=== PATIENT | female | born 1935 | race Asian ===

== ENCOUNTER 2019-08-31 16:19 | Inpatient (IN) | payer OTHER ==
[~2019-08-31] VITALS: Ht 137.2 cm; Wt 60.3 kg
[2019-08-31 16:34] VITALS: BP 138/82
--- NOTE | 2019-08-31 17:22 | NUR ---
84 YR F JONATHAN HO C/O AB PAIN AND WEAKNESS X YESTERDAY. DENIES NVD PMH- HTN, HIGH CHOLSTEROL, ARTHRITIS
[2019-08-31] MEDS ORDERED: ACETAMINOPHEN EXTRA STRENGTH 500 MG TAB PO ONE (17:30)
[2019-08-31] MEDS ORDERED: NACL 0.9% 500 ML IV ONE (17:30)
[2019-08-31] MEDS ORDERED: MORPHINE SULFATE 4 MG/ML SYR IVP ONE (17:30)
[2019-08-31 17:50] LABS: BASOPHILS % (AUTO) 0.2 % (0.0-2.0); HEMATOCRIT 38.8 % (36-48); HEMOGLOBIN 12.8 g/dL (12.0-16.0); LYMPHOCYTES # (AUTO) 1.1 K/uL (2.5-16.5); LYMPHOCYTES % (AUTO) 6.2 % (20.5-51.1); MEAN CORPUSCULAR HEMOGLOBIN 31 pg (27-31); MEAN CORPUSCULAR HGB CONC 33 g/dL (33-37); MEAN CORPUSCULAR VOLUME 92.8 fL (80-94); MONOCYTES # (AUTO) 1.6 K/uL (0.8-1.0); MONOCYTES % (AUTO) 8.6 % (1.7-9.3); NEUTROPHILS # (AUTO) 15.5 K/uL (1.8-7.7); PLATELET COUNT (AUTO) 231 K/uL (140-450); RED BLOOD CELL COUNT(AUTO) 4.18 MIL/uL (4.20-5.40); RED CELL DISTRIBUTION WIDTH 14.2 % (11.6-13.7); WHITE BLOOD COUNT (AUTO) 18.2 K/uL (4.8-10.8)
[2019-08-31 18:01] LABS: APPEARANCE,URINE SL CLOUDY (CLEAR); BILIRUBIN,URINE NEGATIVE (NEGATIVE); BLOOD, URINE 3+ (NEGATIVE); COLOR,URINE YELLOW (YELLOW); LEUKOCYTE ESTERASE ,URINE NEGATIVE (NEGATIVE); NITRITE, URINE NEGATIVE (NEGATIVE); PH,URINE 6.5 (5.0-9.0); UGLUCOSE NEGATIVE (NEGATIVE)
[2019-08-31 18:13] LABS: PROTHROMBIN TIME 10.3 secs (10.8-13.4)
--- NOTE | 2019-08-31 18:14 | NUR ---
PT TAKEN TO CT VIA WHEEL CHAIR
[2019-08-31 18:15] LABS: ALBUMIN 3.5 g/dL (3.4-5.0); BILIRUBIN,DIRECT 0.4 mg/dL (0.0-0.3); TOTAL BILIRUBIN 1.6 mg/dL (0.0-1.0)
[2019-08-31 18:28] LABS: ALBUMIN 3.5 g/dL (3.4-5.0); ANION GAP 14.8 (8-16); ASPARTATE AMINOTRANSFERASE 21 U/L (15-37); CHLORIDE 91 mmol/L (98-107); CREATININE 0.8 mg/dL (0.6-1.3); GLUCOSE 132 mg/dL (74-106); SODIUM SERUM 129 mmol/L (136-145); TOTAL BILIRUBIN 1.6 mg/dL (0.0-1.0); UREA NITROGEN, BLOOD 18 mg/dL (7-18)
[2019-08-31 18:34] LABS: POTASSIUM 2.8 mmol/L (3.5-5.1)
[2019-08-31] MEDS ORDERED: POTASSIUM CHLORIDE 10 MEQ TABER PO ONE (18:45)
[2019-08-31 18:55] LABS: RBC,URINE 11-20 (MOD) /HPF (0-5)
[2019-08-31 18:56] LABS: WBC,URINE 0-5 /HPF (0-5)
[2019-08-31] MEDS ORDERED: PIPERACILLIN/TAZOBACTAM 3.375 GM in DEXTROSE 5% 50 ML IV ONE (19:00)
[2019-08-31] MEDS ORDERED: PIPERACILLIN/TAZOBACTAM 3.375 GM VIAL IV ONE (19:10)
--- NOTE | 2019-08-31 19:12 | NUR ---
REPORT RECEIVED FROM WILDA KEATING. TRANSFER OF CARE AT THIS TIME.
[2019-08-31] MEDS ORDERED: ONDANSETRON 4 MG/2 ML VIAL IVP PRN (19:15)
[2019-08-31] MEDS ORDERED: ALBUTEROL 0.083% 2.5 MG/3 ML NEBU INH PRN (19:15)
[2019-08-31] MEDS ORDERED: LORazepam 2 MG/ML VIAL IVP PRN (19:15)
[2019-08-31] MEDS ORDERED: MORPHINE SULFATE 4 MG/ML SYR IVP PRN (19:15)
[2019-08-31] MEDS ORDERED: MORPHINE SULFATE 2 MG/ML SYR IVP PRN (19:15)
--- NOTE | 2019-08-31 19:15 | NUR ---
PT SITTING UP IN [facility]I [facility]RILL[facility]S IN BED WITH VSS. AWAKE, A/O X 4. DAUGHTER AT BEDSIDE FOR TRANSLATION FOR MAGALY.
[2019-08-31] MEDS ORDERED: SIMV10TA1 PO (19:35)
[2019-08-31] MEDS ORDERED: ATEN100T6 PO (19:35)
[2019-08-31 19:45] VITALS: BP 136/72
--- NOTE | 2019-08-31 19:45 | NUR ---
ADMITTED A 84F FROM ER. CAME BY LIN ACCOMPANIED BY DAUGHTER. AWAKE,ALERT AND ORIENTED X4. ON TELE MONITOR. CAME DUE TO ABDOMINAL PAIN , NAUSEA, WEAKNESS AND FEVER. AMBULATORY WITH CANE. BY AT THIS TIME PT HAS WEAKNESS. DENIES ANY PAIN AT THIS TIME. AFEBRILE. INITIAL SKIN ASSESSMENT DONE. INTACT. WITH IVF INFUSING WELL ON THE RT HAND G#22. CLEAR AND PATENT. PLAN OF CARE DISCUSSED WITH PT/DAUGHTER . VERBALIZED UNDERSTANDING. ORIENTED TO HOSPITAL ROUTINES. CALL LIGHT WITHIN REACH. BED ON LOW POSITION. SIDE RAILS UP X2, BED ALARM ON. WILL FOLLOW UP ADMIT ORDERS AND WILL CONTINUE TO MONITOR.
--- NOTE | 2019-08-31 19:45 | NUR ---
Patient will be admitted to [facility]. Admited to Tele. Will go to room 128. Belongings list completed. Report to WILDA Vargas.
[2019-08-31] MEDS ORDERED: LACTATED RINGERS 1,000 ML IV SCH (20:00)
[2019-08-31] MEDS ORDERED: PIPERACILLIN/TAZOBACTAM 3.375 GM in DEXTROSE 5% 50 ML IV SCH (21:00)
[2019-08-31] MEDS: LACTATED RINGERS 1,000 ML IV SCH (21:10)
--- NOTE | 2019-08-31 21:10 | NUR ---
IVF LR @100 ML /HR STARTED ON THE RT HAND G#22 PER ORDER. INFUSING WELL.
--- NOTE | 2019-08-31 22:00 | NUR ---
PT KEPT NPO ORDERED FOR POSSIBLE SURGERY.
[2019-09-01 00:12] VITALS: BP 128/64
--- NOTE | 2019-09-01 00:37 | NUR ---
DR. Amarjit TOTH WITH ORDER TO OBTAIN CONSENT FOR LAPAROSCOPIC APPENDECTOMY POSSIBLE OPEN. PT AND DAUGHTER MADE AWARE ABOUT THE SURGERY AND VERBALIZED UNDERSTANDING. CONSENT SIGNED BY PT.
--- NOTE | 2019-09-01 02:00 | NUR ---
MADE ROUNDS. PT SLEEPING. NO S/S OF ANY DISCOMFORT NOR PAIN NOTED.
[2019-09-01 04:00] VITALS: BP 117/53
[2019-09-01 04:37] LABS: ALBUMIN 2.9 g/dL (3.4-5.0); ANION GAP 11.5 (8-16); ASPARTATE AMINOTRANSFERASE 18 U/L (15-37); CARBON DIOXIDE 27.9 mmol/L (21-32); CHLORIDE 97 mmol/L (98-107); CREATININE 0.8 mg/dL (0.6-1.3); GLUCOSE 118 mg/dL (74-106); POTASSIUM 3.4 mmol/L (3.5-5.1); SODIUM SERUM 133 mmol/L (136-145); TOTAL BILIRUBIN 1.5 mg/dL (0.0-1.0); UREA NITROGEN, BLOOD 19 mg/dL (7-18)
[2019-09-01] MEDS ORDERED: PIPERACILLIN/TAZOBACTAM 2.25 GM VIAL IV ONE (05:08)
--- NOTE | 2019-09-01 05:25 | NUR ---
K+LEVEL 3.4 ,DR. WILSON MADE AWARE. WITH ORDER.
[2019-09-01] MEDS: PIPERACILLIN/TAZOBACTAM 2.25 GM in DEXTROSE 5% 50 ML IV SCH ×3 (05:26→18:02)
[2019-09-01 05:40] LABS: BASOPHILS % (AUTO) 0.3 % (0.0-2.0); EOSINOPHILS # (AUTO) 0.1 K/uL (0-0.4); EOSINOPHILS % (AUTO) 0.5 % (0.0-4.0); HEMATOCRIT 34.1 % (36-48); HEMOGLOBIN 11.1 g/dL (12.0-16.0); LYMPHOCYTES # (AUTO) 1.3 K/uL (2.5-16.5); LYMPHOCYTES % (AUTO) 8.1 % (20.5-51.1); MEAN CORPUSCULAR HEMOGLOBIN 31 pg (27-31); MEAN CORPUSCULAR HGB CONC 33 g/dL (33-37); MEAN CORPUSCULAR VOLUME 93.9 fL (80-94); MONOCYTES # (AUTO) 1.2 K/uL (0.8-1.0); MONOCYTES % (AUTO) 7.8 % (1.7-9.3); NEUTROPHILS # (AUTO) 12.9 K/uL (1.8-7.7); NEUTROPHILS % (AUTO) 83.3 % (42.2-75.2); PLATELET COUNT (AUTO) 230 K/uL (140-450); RED BLOOD CELL COUNT(AUTO) 3.63 MIL/uL (4.20-5.40); WHITE BLOOD COUNT (AUTO) 15.5 K/uL (4.8-10.8)
[2019-09-01] MEDS ORDERED: KCL 20 MEQ/WATER INJ PREMIX 100 ML IV SCH (06:00)
[2019-09-01] MEDS: LACTATED RINGERS 1,000 ML IV SCH ×2 (06:45→16:56)
[2019-09-01] MEDS: BUPIVACAINE-MPF 0.25% 30 ML VIAL INJ ONE ×2 (07:07→09:43)
[2019-09-01] MEDS: LIDOCAINE 1% 500 MG/50 ML VIAL ONE ×2 (07:07→15:11)
[2019-09-01] MEDS ORDERED: DEXAMETHASONE 4 MG/ML VIAL ONE (07:30)
[2019-09-01] MEDS ORDERED: ONDANSETRON 4 MG/2 ML VIAL ONE (07:30)
[2019-09-01] MEDS ORDERED: fentaNYL 0.05 MG/ML VIAL ONE (07:30)
[2019-09-01] MEDS ORDERED: KETOROLAC 30 MG/ML VIAL ONE (07:30)
[2019-09-01] MEDS ORDERED: PROPOFOL 200 MG/20 ML VIAL IV ONE (07:30)
[2019-09-01] MEDS ORDERED: SEVOFLURANE 250 ML BTL INH ONE (07:30)
[2019-09-01] MEDS ORDERED: ROCURONIUM 50 MG/5 ML VIAL IV ONE (07:30)
[2019-09-01] MEDS ORDERED: SUCCINYLCHOLINE CHLORIDE 200 MG/10 ML VIAL IVP ONE (07:30)
[2019-09-01 08:00] VITALS: BP 143/71
[2019-09-01] MEDS: ENOXAPARIN 40 MG/0.4 ML SYR SUBQ SCH (09:00)
[2019-09-01 12:00] VITALS: BP 121/62
[2019-09-01] MEDS: HYDROcodone/APAP 5/325 MG 1 TAB TAB PO PRN ×2 (12:55→21:31)
--- NOTE | 2019-09-01 12:55 | NUR ---
GAVE PT NORCO FOR PAIN OF 3/10, PT IS S/P LAPAROSCOPIC ABDOMINAL SURGERY, PT KEEPS RUBBING HER SURGICAL SITE AND STATES IT ACHES, EDUCATION GIVEN, PT VERBALIZE UNDERSTANDING AND TOLERATED MEDICATION WELL. CALL LIGHT WITHIN REACH.
--- NOTE | 2019-09-01 15:29 | NUR ---
PATIENT HAS BEEN SCREENED AND CATEGORIZED LOW NUTRITION RISK. PATIENT WILL BE SEEN WITHIN 7 DAYS OF ADMISSION. 09/07/[address]
[2019-09-01 16:00] VITALS: BP 129/70
--- NOTE | 2019-09-01 16:57 | NUR ---
GAVE PT MORPHINE FOR SEVERE ABDOMINAL PAIN OF 5/10, PT KEEPS RUBBING STOMACH AND STATES SHE IS NOT COMFORTABLE, EDUCATION GIVEN, PT VERBALIZED UNDERSTANDING, PT TOLERATED WELL.
--- NOTE | 2019-09-01 19:00 | NUR ---
GAVE REPORT TO NIGHT NURSE FOR CONTINUITY OF CARE, PT IS STABLE, CALL LIGHT WITH REACH.
--- NOTE | 2019-09-01 19:05 | NUR ---
RECEIVED PT IN STABLE CONDITION FROM AM NURSE. AWAKE,ALERT AND ORIENTED 4. TELEMETRY PT. WITH NO C/O POST OP PAIN AT THIS TIME. ABDOMEN WITH X4 INCISIONS, WITH GLUE DRESSING. NO BLEEDING NOTED. WITH IVF INFUSING WELL ON THE RT HAND G#22. CLEAR AND PATENT. PLAN OF CARE DISCUSSED AND VERBALIZED UNDERSTANDING. SIDE RAILS UP X2. BED ON LOW POSITION. FREQ ROUNDS NEEDED. CALL LIGHT PLACED WITHIN REACH. WILL CONTINUE TO MONITOR.
[2019-09-01 20:00] VITALS: BP 112/61
--- NOTE | 2019-09-01 20:20 | NUR ---
INCENTIVE SPIROMETER EDUCATION PROVIDED. PATIENT UNABLE TO COMPREHEND INSTRUCTIONS. DAUGHTER AT BEDSIDE ATTEMPTED TO REINFORCE EDUCATION IN PATIENT PRIMARY LANGUAGE. PATIENT PERFORMED RETURN DEMONSTRATION WITH VERY POOR EFFORT/PT IS NOT COACHABLE. NO ACUTE RESPIRATORY DISTRESS NOTED AT THIS TIME. WILL CONTINUE TO MONITOR AND ENCOURAGE EQUIPMENT USAGE.
--- NOTE | 2019-09-01 21:30 | NUR ---
PT GOT UP TO BATHROOM WITH STANDBY ASSISTANCE. DAUGHTER AT BEDSIDE. VOIDED. THEN BACK TO BED. SCD MACHINE APPLIED TO BOTH LOWER LEG.
--- NOTE | 2019-09-01 21:50 | NUR ---
PT STILL AWAKE. WITH SLIGHT WHEEZING AFTER GETTING UP TO THE BATHROOM. ENCOURAGED TO USE INCENTIVE SPIROMETER . ABLE TO DO IT.
--- NOTE | 2019-09-01 23:00 | NUR ---
MADE ROUNDS. PT ASLEEP. NO S/S OF ANY DISCOMFORT NOTED.
[2019-09-02 00:15] VITALS: BP 111/53
[2019-09-02] MEDS: PIPERACILLIN/TAZOBACTAM 2.25 GM in DEXTROSE 5% 50 ML IV SCH ×3 (00:25→12:08)
[2019-09-02 00:30] VITALS: BP 111/53
--- NOTE | 2019-09-02 01:00 | NUR ---
SLEEPING AT THIS TIME. NO S/S OF ANY PAIN NOR DISCOMFORT NOTED.
[2019-09-02] MEDS: LACTATED RINGERS 1,000 ML IV SCH ×2 (02:45→05:06)
--- NOTE | 2019-09-02 03:00 | NUR ---
MADE ROUNDS. PT AWAKE. NO C/O ANY PAIN AT THIS TIME.
[2019-09-02 04:00] VITALS: BP 110/50
--- NOTE | 2019-09-02 05:00 | NUR ---
PT AWAKE. GOT UP TP BATHROOOM. VOIDED. NO PAIN NOTED.
--- NOTE | 2019-09-02 07:25 | NUR ---
ENDORSED PT IN STABLE CONDITION TO AM NURSE.
--- NOTE | 2019-09-02 07:26 | NUR ---
RECEIVED REPORT FROM NIGHT NURSE, PT IS AA0X4, PT IS STABLE, PT HAS RH 22G RUNNING LR AT 100ML/H, INTRODUCE SELF, UPDATED WHITE BOARD, SAFETY MEASURES IN PLACE, FAMILY AT BEDSIDE, CALL LIGHT WITHIN REACH, WILL CONTINUE TO MONITOR.
[2019-09-02 08:00] VITALS: BP 102/64
[2019-09-02] MEDS: ENOXAPARIN 40 MG/0.4 ML SYR SUBQ SCH (08:45)
--- NOTE | 2019-09-02 09:30 | NUR ---
GAVE PT ORDERED MEDICATION, PT EDUCATION ABOUT SIDE EFFECT GIVEN, PT VERBALIZED UNDERSTANDING, PT IS STABLE, DAUGHTER AT BEDSIDE, CALL LIGHT WITHIN REACH.
--- NOTE | 2019-09-02 10:39 | NUR ---
ELIZABETH assessment/discharge plan High Risk DC Screen Yes Name: Whitney Chase Home Relationship: daughter Pre-Admission Living Arrangements: Lives with Other Other: Whitney Chase Prior ADL Independent Current Home Health Name/Tel: N/A Current DME/02 Name/Tel: cane, no home O2 Current Hospice Name/Tel: N/A Current Dialysis Name/Tel: N/A Healthcare Decision Maker: Patient Advance Directive No Information Taught: Advance Directive Community Resources Person Taught: Children Patient Teaching Tools: Community Resources Computer Generated Print Verbal Factors Affecting Learning: None Participation Level: Active Evaluation: Gestures Understanding Verbalizes Understanding Educator: ELIZABETH Chacon Discipline: Case Mgt/Social Svcs Tentative Discharge Plan Summary: Patient is an 84 year old female admitted for acute appendicitis. I met with patient and patient's daughter Whitney Chase at bedside. Patient lives at home with her daughter Whitney Chase and plans to return home upon discharge. Patient's pcp is Jose Juan Pat and Whitney does not have any difficulty filling patient's prescriptions. Patient does not have hx of mental health or alcohol/substance abuse. I provided them with education on [employer] www.[employer].org for community resources. Subassembly Assembler and/or Hydration Plant Operator will follow up as needed. Signature: ELIZABETH Chacon Date: Sep 02, 2019
[2019-09-02 12:00] VITALS: BP 144/63
[2019-09-02] MEDS: HYDROcodone/APAP 5/325 MG 1 TAB TAB PO PRN (12:05)
--- NOTE | 2019-09-02 12:05 | NUR ---
ADMINISTER NORCO FOR PAIN OF 3/10, PT STATES SHE IS NOT COMFORTABLE AND KEEPS RUBBING SURGICAL SITE, PT EDUCATION GIVEN, PT TOLERATED WELL, PT IS STABLE, WILL CONTINUE TO MONITOR.
[2019-09-02] MEDS ORDERED: METR250T2 PO (14:34)
[2019-09-02] MEDS ORDERED: CIPR500T4 PO (14:34)
[2019-09-02] MEDS ORDERED: HYDR-5122 PO (14:39)
[2019-09-02] MEDS ORDERED: SENN-197 PO (14:39)
[2019-09-02 15:46] LABS: BASOPHILS % (AUTO) 0.1 % (0.0-2.0); EOSINOPHILS % (AUTO) 0.1 % (0.0-4.0); HEMATOCRIT 29.5 % (36-48); HEMOGLOBIN 9.7 g/dL (12.0-16.0); LYMPHOCYTES # (AUTO) 1.2 K/uL (2.5-16.5); LYMPHOCYTES % (AUTO) 9.2 % (20.5-51.1); MEAN CORPUSCULAR HEMOGLOBIN 31 pg (27-31); MEAN CORPUSCULAR HGB CONC 33 g/dL (33-37); MEAN CORPUSCULAR VOLUME 93.9 fL (80-94); MONOCYTES # (AUTO) 1.1 K/uL (0.8-1.0); MONOCYTES % (AUTO) 8.5 % (1.7-9.3); NEUTROPHILS # (AUTO) 11.1 K/uL (1.8-7.7); NEUTROPHILS % (AUTO) 82.1 % (42.2-75.2); PLATELET COUNT (AUTO) 224 K/uL (140-450); RED BLOOD CELL COUNT(AUTO) 3.14 MIL/uL (4.20-5.40); RED CELL DISTRIBUTION WIDTH 14.2 % (11.6-13.7); WHITE BLOOD COUNT (AUTO) 13.5 K/uL (4.8-10.8)
--- NOTE | 2019-09-02 15:53 | NUR ---
PT SITTING IN CHAIR BY THE BED, PT IS STABLE, EAGER TO GO HOME, NO SIGNS OF DISTRESS NOTED, DAUGHTER AT BEDSIDE,
[2019-09-02 16:04] LABS: ALBUMIN 2.8 g/dL (3.4-5.0); ANION GAP 12.1 (8-16); ASPARTATE AMINOTRANSFERASE 21 U/L (15-37); CARBON DIOXIDE 27.9 mmol/L (21-32); CHLORIDE 98 mmol/L (98-107); CREATININE 0.8 mg/dL (0.6-1.3); GLUCOSE 131 mg/dL (74-106); SODIUM SERUM 134 mmol/L (136-145); TOTAL BILIRUBIN 0.7 mg/dL (0.0-1.0); UREA NITROGEN, BLOOD 16 mg/dL (7-18)
--- NOTE | 2019-09-02 17:20 | NUR ---
PT DISCHARGED HOME, IV REMOVED AND INTACT, PT STABLE, PT WHEELED OUT TO CAR.
== END 2019-09-02 17:20 | disposition home or self-care (01) | DRG 710 ==
LOC: MED 16:19 → MMU 19:15
PROVIDERS: ADMIT Hospitalist; ATTEND Hospitalist
PROC: 0DNJ4ZZ Release Appendix, Percutaneous Endoscopic Approach (ICD-10-PCS; 2019-09-01)
PROC: 0DTJ4ZZ Resection of Appendix, Percutaneous Endoscopic Approach (ICD-10-PCS; principal; 2019-09-01 07:30)
DX: A41.9 Sepsis, unspecified organism (principal); K35.33 Acute appendicitis with perforation, localized peritonitis, and gangrene, with abscess; E87.1 Hypo-osmolality and hyponatremia; E78.5 Hyperlipidemia, unspecified; I10 Essential (primary) hypertension; E87.6 Hypokalemia; K66.0 Peritoneal adhesions (postprocedural) (postinfection); Z79.899 Other long term (current) drug therapy
CPT/HCPCS: 36415; 71045; 80053; 80076; 81001; 82150; 83690; 83735; 83880; 84484; 85025; 85610; 85730; 87081; 87804; 93005; 96361; 96374; 99285; J0330; J1100; J1650; J1885; J2001; J2270; J2405; J2543; J2704; J3010; J3480; J3490; J7030; J7060; J7120; Q0092